=== PATIENT | male | born 1945 | race Asian ===

== ENCOUNTER → 2016-11-24 | Outpatient (CLI) | payer MEDICARE ==
[~2016-11-24] MED LIST: ASPI-825 PO; ATOR20TA86 PO; ESOM20CA31 GT; FLUT1DIS5 IH; IOVERSOL 320 MG/ML 100 ML VIAL ONE; METO25TA6 PO; SODIUM CHLORIDE 0.9% 100 ML ONE; TIOT185 IH
== END | disposition home or self-care (01) ==
LOC: RADMN 08:25
PROVIDERS: ATTEND Legal Medicine
DX: M72.2 Plantar fascial fibromatosis (principal); M76.62 Achilles tendinitis, left leg; R22.1 Localized swelling, mass and lump, neck
CPT/HCPCS: 70491; 73630; J7050; Q9967